=== PATIENT | male | born 1970 | race Caucasian/White ===

== ENCOUNTER 2016-10-12 10:40 | Emergency (ER) | payer MEDICAID ==
[~2016-10-12] VITALS: Ht 180.3 cm; Wt 79.4 kg
--- NOTE | 2016-10-12 10:42 | NUR ---
PT TO BED 8 VIA EMS GURNEY.
[2016-10-12 10:43] VITALS: BP 125/87
--- NOTE | 2016-10-12 10:48 | NUR ---
46/M BIBA FROM HOME/HOTEL C/O HEAT EXAUSTION FROM STAYING OUT IN THE SUN TOO LONG PER PT. STS DRANK A LOT OF BEER LAST NIGHT AND SOME THIS MORNING. HX CHRONIC BACK PAIN. DENIES ANY PAIN AT THIS TIME. TEMP 99.1, FACE PINK AT THE CHEEKS, HR 110. CUP OF WATER GIVEN TO PT. PT AAOX3. PER EMS PT GOT INTO DISPUTE TO OR GIRLFRIEND THIS AM, NEARBY BUSNI[employer] CALLED [place] [employer]. DR. RODRIGUEZ MADE AWARE.
--- NOTE | 2016-10-12 11:30 | NUR ---
Patient being evaluated by physician at bedside.
[2016-10-12 12:00] VITALS: BP 128/78
--- NOTE | 2016-10-12 12:00 | NUR ---
Patient discharged with v/s stable. Written and verbal after care instructions given and explained. Patient alert, oriented and verbalized understanding of instructions. Ambulatory with steady gait. All questions addressed prior to discharge. ID band removed. Patient advised to follow up with PMD. Opportunity to ask questions provided and answered.
== END 2016-10-12 12:00 | disposition home or self-care (01) ==
LOC: MED 11:30
DX: E86.0 Dehydration (principal); G89.29 Other chronic pain; M54.9 Dorsalgia, unspecified; F17.200 Nicotine dependence, unspecified, uncomplicated